=== PATIENT | male | born 1990 | race Caucasian/White ===

== ENCOUNTER 2018-08-26 21:28 | Emergency (ER) | payer OTHER, MEDICAID ==
[~2018-08-26] VITALS: Ht 167.6 cm; Wt 77.1 kg
[~2018-08-26 21:28] MED LIST: BACTRIM DS TAB1 EACH PO; BACTROBAN CREAM30 G1 TOP; CEPHALEXIN 500500 M3 PO; DYNACIN100 MG PO; HYDROCODON-ACE1 EAC7 PO; HYDROCODONE-AP1 EAC6 PO; IBUPROFEN 800800 M1 PO; IBUPROFEN 800800 MG PO; KEFLEX500 MG PO; LEVAQUIN 750 M750 MG PO; NOHOMEMEDICATIONS; NORCO 5-325 TA1 EACH PO; RIFAMPIN 300 M300 M1 PO
[2018-08-26 22:20] LABS: ABSOLUTE BASOPHILS 0.1 thou/uL (0.0-0.2); ABSOLUTE EOSINOPHILS 0.5 thou/uL (0.0-0.7); ABSOLUTE LYMPHOCYTES 2.8 thou/uL (0.8-5.3); ABSOLUTE MONOCYTES 0.5 thou/uL (0.0-1.2); ABSOLUTE NEUTROPHILS 3.6 thou/uL (1.6-8.1); BASOPHILS 1.2 %; EOSINOPHILS 6.4 %; HEMATOCRIT 45.2 % (42.0-52.0); HEMOGLOBIN 15.3 gm/dL (14.0-18.0); LYMPHOCYTES 37.6 %; MCH 30.1 pg (26.0-34.0); MCHC 33.8 g/dL (28.0-37.0); MCV 89.1 fL (80.0-100.0); MONOCYTES 6.7 %; NUCLEATED RBCS 0 /100WBC; PLATELET COUNT* 250 thou/uL (150-400); POLYS 48.1 %; RBC 5.07 mil/uL (4.50-6.00); RDW-CV 13.4 % (10.5-14.5); WBC 7.5 thou/uL (4.0-11.0)
[2018-08-26 22:24] LABS: ANION GAP 10 mmol/L (7-16); BUN 19 mg/dL (7-18); CHLORIDE 103 mmol/L (98-107); CO2 27 mmol/L (21-32); CREATININE 1.1 mg/dL (0.6-1.3); GLUCOSE 84 mg/dL (70-99); POTASSIUM 4.1 mmol/L (3.5-5.1); SODIUM 140 mmol/L (136-145)
[2018-08-26 22:26] LABS: APTT 31.3 Seconds (25.0-31.3); INR 0.9; PROTIME 9.7 Seconds (9.20-11.50)
[2018-08-26 22:31] LABS: ALBUMIN 4.4 g/dL (3.4-5.0); ALKALINE PHOSPHATASE 88 U/L (46-116); SGOT 28 U/L (15-37); SGPT 30 U/L (30-65); TOTAL BILIRUBIN 0.2 mg/dL (<0.1-1.0); TOTAL PROTEIN 7.9 g/dL (6.4-8.2); TROPONIN-I LEVEL <0.06 ng/mL (<0.06)
[2018-08-26 23:12] LABS: URINE BILIRUBIN NEGATIVE (Negative); URINE BLOOD NEGATIVE (Negative); URINE CLARITY CLEAR; URINE COLOR YELLOW; URINE GLUCOSE-RANDOM NEGATIVE (Negative); URINE KETONES NEGATIVE (Negative); URINE LEUKOCYTES-REFLEX NEGATIVE (Negative); URINE NITRITE-REFLEX NEGATIVE (Negative); URINE PROTEIN NEGATIVE (Negative); URINE SPECIFIC GRAVITY >= 1.030 (1.005-1.030); URINE UROBILINOGEN 0.2 E.U./dl (0.2-1.0)
[2018-08-26] MEDS ORDERED: ANUSOL-HC25 MG RECTAL (23:15)
[2018-08-27 00:13] VITALS: BP 147/95
--- NOTE | 2018-08-27 16:33 | EKG ---
[place] [address] ELECTROCARDIOGRAM REPORT Name: MICHELLE CARTER Room: [facility] ([place], [place])#: [id number] Admission: 08/26/18 Attend Phys: Discharge: 08/27/18 Date of : [birth year] Report #: [id number] THIS REPORT FOR: //name// [facility] ED Test Date: 2018-08-26 Test Time: 22:16:45 Pat Name: MICHELLE CARTER Department: Room: Gender: M Land Measurer: MARISEL : 1990 Requested By: Aminata Barbosa Order Number: [id number] MD: Al Koenig Measurements Intervals [place] Rate: 104 P: 148 OR: 138 QRS: 139 QRSD: 88 T: -22 QT: 314 QTc: 413 Interpretive Statements Sinus or ectopic atrial tachycardia probable lead switch Probable left atrial enlargement Right axis deviation Borderline low voltage, extremity leads No previous ECG available for comparison Electronically Signed On 08-27-2018 16:32:57 CDT by Al Koenig [email or web address] <ELECTRONICALLY SIGNED> By: Al Koenig MD, [facility] 08/27/18 1632 15 15 Al Koenig MD, [facility] /EPI
== END 2018-08-27 00:14 | disposition home or self-care (01) ==
LOC: M.ERS 21:28
PROVIDERS: Nurse Practitioner Family
DX: K64.8 Other hemorrhoids (principal); K62.5 Hemorrhage of anus and rectum; R42 Dizziness and giddiness; F17.210 Nicotine dependence, cigarettes, uncomplicated

== ENCOUNTER 2018-12-07 15:13 | Emergency (ER) | payer OTHER, MEDICAID ==
[~2018-12-07] VITALS: Ht 165.1 cm; Wt 77.1 kg
[~2018-12-07 15:13] MED LIST changes: +ANUSOL-HC25 MG RECTAL
[2018-12-07 16:11] VITALS: BP 144/101
== END 2018-12-07 16:12 | disposition home or self-care (01) ==
LOC: M.ERS 15:13
DX: Z53.21 Procedure and treatment not carried out due to patient leaving prior to being seen by health care provider (principal)

== ENCOUNTER 2019-07-20 04:33 | Emergency (ER) | payer OTHER, MEDICAID ==
[~2019-07-20] VITALS: Ht 167.6 cm; Wt 77.1 kg
[2019-07-20 05:28] LABS: ABSOLUTE BASOPHILS 0.1 thou/uL (0.0-0.2); ABSOLUTE EOSINOPHILS 0.5 thou/uL (0.0-0.7); ABSOLUTE LYMPHOCYTES 2.3 thou/uL (0.8-5.3); ABSOLUTE MONOCYTES 0.8 thou/uL (0.0-1.2); ABSOLUTE NEUTROPHILS 4.9 thou/uL (1.6-8.1); BASOPHILS 0.7 %; EOSINOPHILS 6.1 %; HEMATOCRIT 45.4 % (42.0-52.0); HEMOGLOBIN 15.3 gm/dL (14.0-18.0); MCH 30.8 pg (26.0-34.0); MCHC 33.8 g/dL (28.0-37.0); MCV 91.1 fL (80.0-100.0); MONOCYTES 9.1 %; MPV 7.9 fl. (7.2-11.1); NUCLEATED RBCS 0 /100WBC; PLATELET COUNT* 231 thou/uL (150-400); POLYS 57.1 %; RBC 4.98 mil/uL (4.50-6.00); RDW-CV 13.6 % (10.5-14.5); WBC 8.5 thou/uL (4.0-11.0)
[2019-07-20] MEDS ORDERED: CARAFATE 1 GM TA1 GM PO (05:42)
[2019-07-20] MEDS ORDERED: OMEPRAZOLE 20 M20 M1 PO (05:42)
[2019-07-20 05:43] LABS: ALBUMIN 4.4 g/dL (3.4-5.0); CALCIUM 8.6 mg/dL (8.5-10.1); CREATININE 1.2 mg/dL (0.6-1.3); POTASSIUM 3.9 mmol/L (3.5-5.1); TOTAL BILIRUBIN 0.2 mg/dL (<0.1-1.0); TOTAL PROTEIN 7.6 g/dL (6.4-8.2)
[2019-07-20 07:29] VITALS: BP 156/92
== END 2019-07-20 07:30 | disposition home or self-care (01) ==
LOC: M.ERS 04:33
PROVIDERS: Personal Emergency Response Attendant
DX: K62.5 Hemorrhage of anus and rectum (principal); F17.210 Nicotine dependence, cigarettes, uncomplicated; F15.10 Other stimulant abuse, uncomplicated

== ENCOUNTER 2021-04-21 15:19 | Emergency (ER) | payer OTHER, MEDICAID ==
[~2021-04-21] VITALS: Ht 165.1 cm; Wt 83.9 kg
[~2021-04-21 15:19] MED LIST changes: +CARAFATE 1 GM TA1 GM PO; +OMEPRAZOLE 20 M20 M1 PO
[2021-04-21 16:53] LABS: URINE BILIRUBIN NEGATIVE (Negative); URINE BLOOD NEGATIVE (Negative); URINE CLARITY CLEAR; URINE COLOR YELLOW; URINE GLUCOSE-RANDOM NEGATIVE (Negative); URINE KETONES NEGATIVE (Negative); URINE LEUKOCYTES-REFLEX NEGATIVE (Negative); URINE NITRITE-REFLEX NEGATIVE (Negative); URINE PROTEIN NEGATIVE (Negative); URINE UROBILINOGEN 0.2 E.U./dl (0.2-1.0)
[2021-04-21 17:07] LABS: ABSOLUTE EOSINOPHILS 0.1 thou/uL (0.0-0.7); ABSOLUTE LYMPHOCYTES 0.9 thou/uL (0.8-5.3); ABSOLUTE MONOCYTES 0.6 thou/uL (0.0-1.2); ABSOLUTE NEUTROPHILS 4.9 thou/uL (1.6-8.1); BASOPHILS 0.3 %; EOSINOPHILS 2.1 %; HEMATOCRIT 46.6 % (42.0-52.0); HEMOGLOBIN 15.9 gm/dL (14.0-18.0); LYMPHOCYTES 13.4 %; MCH 30.5 pg (26.0-34.0); MCHC 34.2 g/dL (28.0-37.0); MONOCYTES 9.3 %; MPV 8.4 fl. (7.2-11.1); NUCLEATED RBCS 0 /100WBC; PLATELET COUNT* 173 thou/uL (150-400); POLYS 74.9 %; RBC 5.23 mil/uL (4.50-6.00); RDW-CV 13.7 % (10.5-14.5); WBC 6.5 thou/uL (4.0-11.0)
[2021-04-21 17:16] LABS: CALCIUM 8.5 mg/dL (8.5-10.1); CREATININE 0.9 mg/dL (0.6-1.3); POTASSIUM 4.5 mmol/L (3.5-5.1)
[2021-04-21 17:21] LABS: ALBUMIN 4.2 g/dL (3.4-5.0); TOTAL BILIRUBIN 0.7 mg/dL (<0.1-1.0); TOTAL PROTEIN 7.6 g/dL (6.4-8.2)
[2021-04-21] MEDS ORDERED: ZOFRAN ODT4 MG DISSOLVE (17:39)
[2021-04-21] MEDS ORDERED: BENTYL 10 MG CA10 M1 PO (17:39)
[2021-04-21] MEDS ORDERED: VISTARIL50 MG PO (17:39)
[2021-04-21 17:50] VITALS: BP 137/80
--- NOTE | 2021-04-23 13:50 | EKG ---
[place] [address] ELECTROCARDIOGRAM REPORT Name: MICHELLE CARTER Room: [facility]#: [id number] Admission: 04/21/21 Attend Phys: Discharge: 04/21/21 Date of : [birth year] Date of Service: 04/21/21 1637 Report #: [id number] THIS REPORT FOR: //name// [facility] ED Test Date: 2021-04-21 Test Time: 16:37:05 Pat Name: MICHELLE CARTER Department: Room: Gender: T[employer]: : 1990 Requested By: Manfred Wu Order Number: [id number] MD: Al Koenig Measurements Intervals [place] Rate: 79 P: 49 UT: 136 QRS: 64 QRSD: 93 T: 31 QT: 367 QTc: 421 Interpretive Statements Sinus rhythm Compared to ECG 08/26/2018 22:16:45 Right-axis deviation no longer present Electronically Signed On 04-23-2021 13:49:50 CDT by Al Koenig [email or web address] <ELECTRONICALLY SIGNED> By: Al Koenig MD, [facility] 04/23/21 1349 1637 1637 Al Koenig MD, [facility] /EPI
== END 2021-04-21 17:50 | disposition home or self-care (01) ==
LOC: M.ERS 15:19
PROVIDERS: Emergency Medicine Emergency Medical Services
DX: R10.13 Epigastric pain (principal); F17.210 Nicotine dependence, cigarettes, uncomplicated; R11.2 Nausea with vomiting, unspecified